=== PATIENT | female | born 1990 | race African-American/Black ===

== ENCOUNTER 2016-11-20 11:19 | Emergency (ER) | payer MEDICAID ==
--- NOTE | 2016-11-20 11:25 | ER Document Report ---
ED Medical Screen (RME) - General Stated Complaint: NAUSEA/VOMITING Mode of Arrival: Ambulatory Information source: Patient Notes: Patient presents complaining of nausea and vomiting that she trips to her present. Patient has not had any care thus far. Patient complains of dizziness. Last period was in October. Patient complains of generalized abdominal pain. I have greeted and performed a rapid initial assessment of this patient. A comprehensive ED assessment and evaluation of the patient, analysis of test results and completion of the medical decision making process will be conducted by additional ED providers. TRAVEL OUTSIDE OF THE [place] IN LAST 30 DAYS: No - Related Data Allergies/Adverse Reactions: No Known Allergies Allergy (Verified 11/20/16 11:22) Past Medical History - Past Medical History Cardiac Medical History: Reports: Hx Hypertension - preeclampsia Renal/ Medical History: Denies: Hx Ectopic , Hx Pelvic Inflammatory Disease - Immunizations Hx Diphtheria, Pertussis, Tetanus Vaccination: Yes Physical Exam - Abdominal Tenderness: Tender - Generalized abdomen
[2016-11-20] MEDS ORDERED: METOCLOPRAMIDE HCL 10 MG TABLET PO ONE (12:04)
[2016-11-20] MEDS ORDERED: ONDANSETRON 4 MG TAB.RAPDIS PO ONE (12:04)
[2016-11-20] MEDS ORDERED: DIPHENHYDRAMINE HCL 25 MG CAPSULE PO ONE (12:04)
--- NOTE | 2016-11-20 12:08 | ER Document Report ---
ED GI/ - General Chief Complaint: Vomiting Stated Complaint: NAUSEA/VOMITING Mode of Arrival: Ambulatory Notes: Patient says that she has had frequent, continuous vomiting for the past 10 days , since she took a test and learned she was . She's had daily nausea and vomiting and it continued this morning, as well. She is able to drink liquids, but can't keep any solid food down. She does feel hungry. Denies diarrhea. No fevers. Denies UTI symptoms. No cough or cold or chest congestion. Patient is for the sixth time, has 3 living children and 2 therapeutic abortions. LMP 10/02. Positive home test. Patient has had previous hyperemesis gravidarum during prior pregnancies. No abdominal surgeries. No routine medications. Has had hypertension with previous pregnancies. TRAVEL OUTSIDE OF THE [place] IN LAST 30 DAYS: No - Related Data Allergies/Adverse Reactions: No Known Allergies Allergy (Verified 11/20/16 11:22) Past Medical History - General Information source: Patient - Social History Smoking Status: Unknown if Ever Smoked Cigarette use (# per day): No Chew tobacco use (# tins/day): No Frequency of alcohol use: Occasional Drug Abuse: None Family History: Reviewed & Not Pertinent Patient has suicidal ideation: No Patient has homicidal ideation: No - Past Medical History Cardiac Medical History: Reports: Hx Hypertension - preeclampsia Surgical Hx: Negative - Immunizations Hx Diphtheria, Pertussis, Tetanus Vaccination: Yes Review of Systems - Review of Systems Notes: REVIEW OF SYSTEMS: CONSTITUTIONAL : Denies fever. EENT: Denies eye, ear, nose or mouth pain symptoms. Patient has pain in her throat, but thinks it secondary to vomiting so much. No known exposures to strep or other pharyngitis. CARDIOVASCULAR: Denies chest pain. RESPIRATORY: Denies cough, chest congestion, or shortness of breath. GASTROINTESTINAL: See history of present illness. GENITOURINARY: Denies difficulty or painful urinating, urinary frequency, blood in urine. MUSCULOSKELETAL: Denies back or neck pain. Denies joint pain or swelling. SKIN: Denies rash or skin lesions. NEUROLOGICAL: Denies LOC or altered mental status. Denies headache. Denies sensory loss or motor deficits. ALL OTHER SYSTEMS REVIEWED AND NEGATIVE. Physical Exam - Vital signs Vitals: Temp Pulse Resp BP Pulse Ox 97.8 F 96 18 122/71 97 11/20/16 11:24 11/20/16 11:24 11/20/16 11:24 11/20/16 11:24 11/20/16 11:24 Interpretation: Normal - Notes Notes: PHYSICAL EXAMINATION: GENERAL: Well-appearing, in no acute distress. HEAD: Atraumatic, normocephalic. ENT: oropharynx erythematous, but without exudates. Moist mucous membranes. Patent oral passage. NECK: Normal range of motion, supple. LUNGS: Breath sounds clear and equal bilaterally. HEART: Regular rate and rhythm without murmurs. ABDOMEN: Soft, nontender. No guarding or rebound. NEUROLOGICAL: Normal speech, normal gait. Normal sensory, motor, and reflex exams. Awake, alert, and oriented x3. Cranial nerves normal. SKIN: Warm, dry, no rashes. Course - Re-evaluation Re-evalutation: 11/20/16 14:18 Patient felt somewhat improved after medications for her nausea and vomiting. Lab results are all essentially normal. She is willing to try going home with medications and returning as needed for further assessment or treatment. She is being discharged with a prescription for Reglan and Zofran. - Vital Signs Vital signs: Temp Pulse Resp BP Pulse Ox 98.3 F 84 18 133/90 H 100 11/20/16 13:51 11/20/16 13:49 11/20/16 11:24 11/20/16 13:49 11/20/16 13:49 - Laboratory Result Diagrams: 11/20/16 12:35 11/20/16 12:35 Laboratory results interpreted by me: 11/20/16 11/20/16 12:05 12:35 Beta HCG, Quant 10093.00 H Urine Protein 30 H Urine Ketones 20 H Urine Blood SMALL H Urine Urobilinogen 4.0 H Urinalysis is probably normal. A culture was ordered. No antibiotic prescribed. Discharge - Discharge Clinical Impression: Vomiting during , Hyperemesis gravidarum Condition: Stable Disposition: HOME, SELF-CARE Additional Instructions: You are . care is best started as early in as possible. If you're unsure about continuing this , you should discuss this with your physician or with medical voucher clerk at [facility]. You should take only medications approved by your physician. Acetaminophen can safely be taken for minor pains. As a rule, medication for chronic conditions such as asthma or seizures can safely be continued. You should discuss with the physician every medicine you take. Any regular exercise program can be continued. Talk to your physician, however, before engaging in competitive or demanding sports. Alcohol, smoking, and "street drugs" are dangerous to your baby. Cocaine is especially dangerous. Don't use any illicit drugs! Vomiting Vomiting can be part of many illnesses. Most cases of vomiting are due to gastroenteritis, usually a viral infection in the intestinal tract. There is no specific treatment. The disease will end by itself. For now, the main danger to your child is dehydration. During the first few hours of the illness, give clear liquids, such as Pedialyte. Try to give small quantities frequently, such as a teaspoon of liquid every minute or about an ounce of fluids every five to ten minutes. Medications may be prescribed by the physician for special cases. After an hour or two of fluids without vomiting, add rice cereal, toast, applesauce, or bananas and other more solid foods to the clear liquids. Call the physician or go to the hospital if vomiting increases or blood appears in the bowel movement or vomitus; if your child fails to improve, or if signs of dehydration occur (no wet diapers for eight to twelve hours, tongue and mouth become dry, not acting as alert as usual). Hyperemesis Gravidarum Hyperemesis gravidarum is the medical term for severe vomiting during . We don't know exactly why it occurs, but it's a common problem. Dehydration can occur. This reduces blood flow to the placenta, decreasing the baby's nourishment. The baby will also become dehydrated. There can be harmful changes in blood sodium, potassium, or acid balance. Our goal is to correct, and prevent, dehydration. For severe cases, we give IV fluids. Antinausea medication will be prescribed. (Don't be concerned about " defects" -- the risk to you and your baby from the hyperemesis is the biggest problem. The antinausea medication is very safe at this stage of .) Call the doctor if you have vaginal bleeding, abdominal pain, severe lightheadedness or weakness, or other alarming symptoms. ANTINAUSEA MEDICATION: You have been given a medication to suppress nausea and vomiting. This type of medication can be given as a shot, pill, or suppository. It will usually last for many hours. Pills and shots usually last six to eight hours. For the typical illness, only one or two doses of the medication may be necessary. Mild lightheadedness may occur. This type of medicine can cause drowsiness. Do not drive or operate dangerous machinery while under its influence. Do not mix with alcohol. See your doctor at once if you have muscle spasms or tightness, or uncontrollable motions (particularly of the neck, mouth, or jaw). Persistent vomiting or severe lightheadedness should also be evaluated by the physician. Diphenhydramine The use of diphenhydramine (Benadryl) has been recommended to control allergic symptoms. The 25 mg strength is available over- the-counter, as well as the elixir. This antihistamine is used for many symptoms. It's useful for itching, watering eyes and nose, allergic swelling, hives, and insect stings. The medication can be repeated four times daily. Age Elixir (12.5 mg/tsp) 25 mg pill adult 1-2 tabs Antihistamines may cause drowsiness, especially with the first dose. Do not operate machinery or drive while under the effects of the medication. Do not combine the medication with alcohol, or with any other medication without talking to your doctor. REGLAN (METOCLOPRAMIDE): Reglan has been prescribed. This medicine affects the stomach and intestines. It can be used to treat nausea and vomiting, to prevent reflux of stomach acid up into the esophagus, or to increase the contractions of the stomach and intestines. It is often prescribed for esophagitis, and for paralysis of the stomach in diabetics. Reglan can cause either mild restlessness or drowsiness. You should contact the doctor at once if you become extremely restless, anxious, or cannot sleep, or if you develop uncontrollable motions of the lips, tongue, or jaw. Do not take alcohol with this medicine. Do not drive or operate machinery until you have been taking this medicine long enough to know how it affects you. Call the doctor if you develop abdominal pains, lightheadedness, black stool, or blood in the stool or vomitus. FOLLOW-UP CARE: If you have been referred to a physician for follow-up care, call the physician s office for an appointment as you were instructed or within the next two days. If you experience worsening or a significant change in your symptoms, notify the physician immediately or return to the Emergency Department at any time for re-evaluation. Prescriptions: Metoclopramide HCl [Reglan 10 mg Tablet] 1 - 2 tab PO Q4HP PRN #20 tablet PRN Reason: Ondansetron [Zofran Odt 4 mg Tablet] 1 - 2 tab PO Q4H PRN #20 tab.rapdis PRN Reason: For Nausea/Vomiting Forms: Return to Work Referrals: [facility] [Provider Group] - Follow up as needed
[2016-11-20 12:45] LABS: ABSOLUTE LYMPHOCYTES (AUTO) 1.4 10^3/uL (0.5-4.7); ABSOLUTE MONOCYTES (AUTO) 0.6 10^3/uL (0.1-1.4); ABSOLUTE NEUT (AUTO) 5.3 10^3/uL (1.7-8.2); BASOPHILS % (AUTO) 0.3 % (0-2); EOSINOPHILS % (AUTO) 0.1 % (0-6); HEMATOCRIT 40.6 % (36.0-47.0); HEMOGLOBIN 13.7 g/dL (12.0-15.5); HGB HCT DIFFERENCE 0.5; MEAN CORPUSCULAR HEMOGLOBIN 30.9 pg (27.0-33.4); MEAN CORPUSCULAR HGB CONC 33.8 g/dL (32.0-36.0); MEAN CORPUSCULAR VOLUME 91 fl (80-97); MONOCYTES % (AUTO) 8.1 % (3-13); RED BLOOD COUNT 4.45 10^6/uL (3.72-5.28); RED CELL DISTRIBUTION WIDTH 13.5 % (11.5-14.0); SEGMENTED NEUTROPHILS % (AUTO) 72.5 % (42-78); WHITE BLOOD COUNT 7.3 10^3/uL (4.0-10.5)
[2016-11-20 12:54] LABS: APPEARANCE,URINE CLOUDY; BILIRUBIN,URINE NEGATIVE (NEGATIVE); GLUCOSE, URINE NEGATIVE (NEGATIVE); KETONES,URINE 20 mg/dL (NEGATIVE); LEUKOCYTE ESTERASE,URINE NEGATIVE (NEGATIVE); NITRITE,URINE NEGATIVE (NEGATIVE); PROTEIN,URINE 30 mg/dL (NEGATIVE); URINE SPECIFIC GRAVITY 1.033
[2016-11-20 13:03] LABS: ALANINE AMINOTRANSFERASE 22 U/L (9-52); ALBUMIN 4.2 g/dL (3.5-5.0); ALKALINE PHOSPHATASE 49 U/L (38-126); ANION GAP 13 (5-19); ASPARTATE AMINO TRANSFERASE 16 U/L (14-36); BILIRUBIN,TOTAL 0.5 mg/dL (0.2-1.3); BLOOD UREA NITROGEN 7 mg/dL (7-20); CALCIUM 9.9 mg/dL (8.4-10.2); CARBON DIOXIDE 25 mmol/L (22-30); CHLORIDE 99 mmol/L (98-107); CREATININE RESULT 0.77 mg/dL (0.52-1.25); GLUCOSE 99 mg/dL (75-110); LIPASE 38.9 U/L (23-300); POTASSIUM 3.9 mmol/L (3.6-5.0); SODIUM 137.3 mmol/L (137-145); TOTAL PROTEIN 7.3 g/dL (6.3-8.2)
[2016-11-20 13:51] VITALS: BP 133/90
== END 2016-11-20 13:51 | disposition home or self-care (01) ==
LOC: ER 11:19
DX: O21.0 Mild hyperemesis gravidarum (principal); Z3A.01 Less than 8 weeks gestation of pregnancy
CPT/HCPCS: 99284; 36415; 87070; 87086; 87880; 84702; 83690; 85025; 80053; 81001; J3490 ×2; S0119

== ENCOUNTER 2017-07-06 11:32 | Emergency (ER) | payer SELFPAY ==
[2017-07-06 11:47] VITALS: BP 139/97
== END 2017-07-06 12:31 | disposition left against medical advice (07) ==
LOC: ER 11:32
DX: Z53.21 Procedure and treatment not carried out due to patient leaving prior to being seen by health care provider (principal)

== ENCOUNTER 2018-06-07 16:26 | Emergency (ER) | payer SELFPAY | END 2018-06-07 18:36 | disposition left against medical advice (07) | LOC: ER 16:26 | DX: Z53.21 Procedure and treatment not carried out due to patient leaving prior to being seen by health care provider (principal) ==

== ENCOUNTER 2018-07-12 11:13 | Emergency (ER) | payer SELFPAY ==
[2018-07-12] MEDS ORDERED: ONDANSETRON 4 MG TAB.RAPDIS PO ONE (11:41)
--- NOTE | 2018-07-12 11:43 | ER Document Report ---
ED Medical Screen (RME) - General Chief Complaint: Nausea/Vomiting Stated Complaint: HEADACHE Time Seen by Provider: 07/12/18 11:36 Notes: 28-year-old female complaining of a 2-day history of nausea and vomiting with. Also complains of suprapubic abdominal pain that is cramping in nature. Her menstrual cycle is approximately 5 days late. Denies any vaginal discharge. Has not taken home test. TRAVEL OUTSIDE OF THE [place] IN LAST 30 DAYS: No - Related Data Allergies/Adverse Reactions: No Known Allergies Allergy (Verified 06/07/18 16:27) Past Medical History - General Information source: Patient - Social History Cigarette use (# per day): No Chew tobacco use (# tins/day): No Frequency of alcohol use: Social Drug Abuse: None - Past Medical History Cardiac Medical History: Reports: Hx Hypertension - preeclampsia Renal/ Medical History: Denies: Hx Ectopic , Hx Peritoneal Dialysis, Hx Pelvic Inflammatory Disease - Immunizations Hx Diphtheria, Pertussis, Tetanus Vaccination: Yes Review of Systems - Review of Systems Gastrointestinal: See HPI Genitourinary: See HPI Female Genitourinary: See HPI Physical Exam - Vital signs Vitals: Temp Pulse Resp BP Pulse Ox 98.4 F 108 H 18 141/93 H 97 07/12/18 11:18 07/12/18 11:18 07/12/18 11:18 07/12/18 11:18 07/12/18 11:18 Interpretation: Tachycardic - Notes Notes: General: No acute distress Heart: Tachycardic, no Murmurs gallops or rubs Lungs: Clear to auscultation bilaterally, no tachypnea Abdomen: normal bowel sounds, mild suprapubic tenderness to palpation Course - Vital Signs Vital signs: Temp Pulse Resp BP Pulse Ox 98.4 F 108 H 18 141/93 H 97 07/12/18 11:18 07/12/18 11:18 07/12/18 11:18 07/12/18 11:18 07/12/18 11:18 Doctor's Discharge - Discharge Referrals: SRINATH MUNIZ MD [Primary Care Provider] - Follow up as needed
[2018-07-12 12:08] LABS: ABSOLUTE LYMPHOCYTES (AUTO) 1.4 10^3/uL (0.5-4.7); ABSOLUTE MONOCYTES (AUTO) 0.5 10^3/uL (0.1-1.4); ABSOLUTE NEUT (AUTO) 5.7 10^3/uL (1.7-8.2); BASOPHILS % (AUTO) 0.4 % (0-2); EOSINOPHILS % (AUTO) 0.6 % (0-6); HEMATOCRIT 39.9 % (36.0-47.0); HEMOGLOBIN 13.8 g/dL (12.0-15.5); LYMPHOCYTES % (AUTO) 17.8 % (13-45); MEAN CORPUSCULAR HEMOGLOBIN 32.3 pg (27.0-33.4); MEAN CORPUSCULAR HGB CONC 34.5 g/dL (32.0-36.0); MEAN CORPUSCULAR VOLUME 94 fl (80-97); MONOCYTES % (AUTO) 6.4 % (3-13); PLATELET COUNT 306 10^3/uL (150-450); RED BLOOD COUNT 4.26 10^6/uL (3.72-5.28); RED CELL DISTRIBUTION WIDTH 14.6 % (11.5-14.0); SEGMENTED NEUTROPHILS % (AUTO) 74.8 % (42-78); TOTAL CELLS COUNTED % (AUTO) 100 %; WHITE BLOOD COUNT 7.6 10^3/uL (4.0-10.5)
[2018-07-12 12:18] LABS: APPEARANCE,URINE CLOUDY; BILIRUBIN,URINE NEGATIVE (NEGATIVE); COLOR,URINE YELLOW; GLUCOSE, URINE NEGATIVE (NEGATIVE); KETONES,URINE NEGATIVE (NEGATIVE); LEUKOCYTE ESTERASE,URINE NEGATIVE (NEGATIVE); NITRITE,URINE NEGATIVE (NEGATIVE); PROTEIN,URINE 30 mg/dL (NEGATIVE); URINE SPECIFIC GRAVITY 1.029
--- NOTE | 2018-07-12 12:19 | ER Document Report ---
ED GI/ - General Mode of Arrival: Ambulatory Information source: Patient TRAVEL OUTSIDE OF THE [place] IN LAST 30 DAYS: No <LUL WARD - Last Filed: 07/12/18 13:33> <TRACIE TURNER - Last Filed: 07/12/18 15:03> - General Chief Complaint: Nausea/Vomiting Stated Complaint: HEADACHE Time Seen by Provider: 07/12/18 11:36 Notes: Patient is a 28 year old female that presents to the emergency department today with complaints of nausea x5 days. Patient states that her menstrual cycle is currently 5 days late and she is unsure if she is or not. Patient states she has developed some abdominal pain, all which has occurred after the vomiting began. Patient states she has been preeclamptic with previous pregnancies. (LUL WARD) - Related Data Allergies/Adverse Reactions: No Known Allergies Allergy (Verified 06/07/18 16:27) Past Medical History - General Information source: Patient - Social History Smoking Status: Current Every Day Smoker Cigarette use (# per day): No Chew tobacco use (# tins/day): No Frequency of alcohol use: Social Drug Abuse: None Family History: Reviewed & Not Pertinent Patient has suicidal ideation: No Patient has homicidal ideation: No - Past Medical History Cardiac Medical History: Reports: Hx Hypertension - preeclampsia Renal/ Medical History: Denies: Hx Ectopic , Hx Peritoneal Dialysis, Hx Pelvic Inflammatory Disease - Immunizations Hx Diphtheria, Pertussis, Tetanus Vaccination: Yes <LUL WARD - Last Filed: 07/12/18 13:33> Review of Systems - Review of Systems Gastrointestinal: See HPI, Abdominal pain, Nausea <LUL WARD - Last Filed: 07/12/18 13:33> Physical Exam <LUL WARD - Last Filed: 07/12/18 13:33> <TRACIE TURNER - Last Filed: 07/12/18 15:03> - Vital signs Vitals: Temp Pulse Resp BP Pulse Ox 98.4 F 108 H 18 141/93 H 97 07/12/18 11:18 07/12/18 11:18 07/12/18 11:18 07/12/18 11:18 07/12/18 11:18 - Notes Notes: Physical Exam: General: Alert, obese. HEENT: Normocephalic. Atraumatic. PERRL. Extraocular movements intact. Oropharynx clear. Neck: Supple. Non-tender. Respiratory: No respiratory distress. Clear and equal breath sounds bilaterally. Cardiovascular: Regular rate and rhythm. Abdominal: Obese. Suprapubic tenderness with palpation. No distension. Normal Bowel Sounds. Back: Non-tender. No deformity or step off. Extremities: Moves all four extremities. Upper extremities: Normal inspection. Normal ROM. Lower extremities: Normal inspection. No edema. Normal ROM. Neurological: Normal cognition. AAOx4. Normal speech. Psychological: Normal affect. Normal Mood. Skin: Warm. Dry. Normal color. (LUL WARD) Course - Laboratory Result Diagrams: 07/12/18 11:49 07/12/18 11:49 <LUL WARD - Last Filed: 07/12/18 13:33> - Laboratory Result Diagrams: 07/12/18 11:49 07/12/18 11:49 - Diagnostic Test Radiology reviewed: Reports reviewed - Ultrasound shows a 5-week 2-day gestational sac without pole. There is a subchorionic bleed. <TRACIE TURNER - Last Filed: 07/12/18 15:03> - Vital Signs Vital signs: Temp Pulse Resp BP Pulse Ox 98.4 F 108 H 18 141/93 H 97 07/12/18 11:18 07/12/18 11:18 07/12/18 11:18 07/12/18 11:18 07/12/18 11:18 - Laboratory Laboratory results interpreted by me: 07/12/18 07/12/18 07/12/18 11:49 11:49 11:49 RDW 14.6 H BUN 4 L Serum HCG, Qual POSITIVE H Beta HCG, Quant Urine Protein Urine Blood Urine Urobilinogen 07/12/18 07/12/18 11:49 11:49 RDW BUN Serum HCG, Qual Beta HCG, Quant 2979.40 H Urine Protein 30 H Urine Blood SMALL H Urine Urobilinogen 4.0 H Discharge <LUL WARD - Last Filed: 07/12/18 13:33> <TRACIE TURNER - Last Filed: 07/12/18 15:03> - Discharge Clinical Impression: , threatened, early Condition: Stable Disposition: HOME, SELF-CARE Additional Instructions: : You are . care is best started as early in as possible. If you're unsure about continuing this , you should discuss this with your physician or with grinding room supervisor at [facility]. You should take only medications approved by your physician. Acetaminophen can safely be taken for minor pains. As a rule, medication for chronic conditions such as asthma or seizures can safely be continued. You should discuss with the physician every medicine you take. Any regular exercise program can be continued. Talk to your physician, however, before engaging in competitive or demanding sports. Alcohol, smoking, and "street drugs" are dangerous to your baby. Cocaine is especially dangerous. Don't use any illicit drugs! Bleeding During Early : Your ultrasound shows a 5-week 2-day intrauterine with a subchorionic bleed. While we take this symptom very seriously, most women with your degree of bleeding will go on to have a perfectly normal baby. You have not had vaginal bleeding noted yet, but you most likely will have some in the next few days. It will probably be a dark brownish colored bleeding. You should rest in bed until the symptoms have resolved. Do not douche or have sex for at least a week, or until OK'd by the doctor. Don't use tampons. Call the doctor or return for re-examination if there is an increase in bleeding or cramping, extreme weakness, fainting, new abdominal pain, fever, or passage of tissue. Drink plenty of fluids and rest until the cramping is gone. Follow-up with the health department or with [facility] to start your care. RETURN TO THE EMERGENCY ROOM IF ANY NEW OR WORSENING SYMPTOMS. Referrals: SRINATH MUNIZ MD [ACTIVE STAFF] - Follow up as needed Scribe Attestation: 07/12/18 13:32 I personally performed the services described in the documentation, reviewed and edited the documentation which was dictated to the scribe in my presence, and it accurately records my words and actions. (TRACIE TURNER) Scribe Documentation - Scribe Written by Scribe:: Karey Pace, 07/12/2018 1415 acting as scribe for :: Crystal <LUL WARD - Last Filed: 07/12/18 13:33>
[2018-07-12 12:26] LABS: ALANINE AMINOTRANSFERASE 24 U/L (9-52); ALBUMIN 4.3 g/dL (3.5-5.0); ALKALINE PHOSPHATASE 47 U/L (38-126); ANION GAP 11 (5-19); ASPARTATE AMINO TRANSFERASE 16 U/L (14-36); BILIRUBIN,DIRECT 0.1 mg/dL (0.0-0.4); BILIRUBIN,TOTAL 0.6 mg/dL (0.2-1.3); BLOOD UREA NITROGEN 4 mg/dL (7-20); CALCIUM 9.7 mg/dL (8.4-10.2); CARBON DIOXIDE 25 mmol/L (22-30); CHLORIDE 105 mmol/L (98-107); GLUCOSE 89 mg/dL (75-110); LIPASE 50.2 U/L (23-300); SODIUM 141.2 mmol/L (137-145); TOTAL PROTEIN 7.4 g/dL (6.3-8.2)
--- NOTE | 2018-07-12 14:28 | RADIOLOGY REPORT (SQ) ---
EXAM DESCRIPTION: U/S OB TRANSVAGINAL W/O DOP COMPLETED DATE/TIME: 07/12/2018 2:07 pm REASON FOR STUDY: Suprapubic abdominal cramping COMPARISON: None. TECHNIQUE: Transvaginal static and realtime grayscale images acquired of the pelvis. Additional dariana cted spectral and color Doppler images recorded. All images stored on PACs. [facility],[id number] CLINICAL DATES: 5 weeks 0 days. LIMITATIONS: None. FINDINGS: FETUS: No pole is identifiable. ULTRASOUND EGA: 5 weeks 2 days. ULTRASOUND OMAR: 03/12/2019 EFW: Not applicable less than 20 weeks. CRL: No pole. FHR: No heart activity. PLACENTA: Not yet developed due to early gestation. SUBCHORIONIC BLEED: Yes. SIZE OF BLEED: 1.7 x 0.8 cm. UTERUS: No masses. No anomalies. CERVICAL LENGTH: 3.3 cm. Closed. RIGHT ADNEXA: Ovary not identified due to poor acoustical window. No adnexal free fluid. No adnexal masses. LEFT ADNEXA: Ovary not identified due to poor acoustical window. No adnexal free fluid. No adnexal masses. FREE FLUID: None. OTHER: No other significant finding. IMPRESSION: Gestational sac corresponding to 5 weeks 2 days. No pole or heart activity. Ther e is a small subchorionic bleed. Trimester of : First - 0 to 13 weeks. TECHNICAL DOCUMENTATION: JOB ID: [id number] [employer]- All Rights Reserved rev Reading location - IP/workstation name: [email or web address]
[2018-07-12 15:32] VITALS: BP 131/92
== END 2018-07-12 15:32 | disposition home or self-care (01) ==
LOC: ER 11:13
DX: O20.0 Threatened abortion (principal); O16.1 Unspecified maternal hypertension, first trimester; O26.891 Other specified pregnancy related conditions, first trimester; R11.0 Nausea; O99.331 Smoking (tobacco) complicating pregnancy, first trimester; Z3A.01 Less than 8 weeks gestation of pregnancy
CPT/HCPCS: 99284; 36415; 84702; 83690; 84703; 85025; 80053; 81001; 76817; S0119

== ENCOUNTER 2018-11-06 08:47 | Outpatient (CLI) | payer SELFPAY ==
[2018-11-06 09:23] LABS: APPEARANCE,URINE SLIGHTLY-CLOUDY; BILIRUBIN,URINE SMALL (NEGATIVE); GLUCOSE, URINE NEGATIVE (NEGATIVE); KETONES,URINE 20 mg/dL (NEGATIVE); LEUKOCYTE ESTERASE,URINE NEGATIVE (NEGATIVE); NITRITE,URINE NEGATIVE (NEGATIVE); PROTEIN,URINE NEGATIVE (NEGATIVE); URINE SPECIFIC GRAVITY 1.025
[2018-11-06 09:24] LABS: COLOR,URINE DARK YELLOW
[2018-11-06 09:36] LABS: URINE AMPHETAMINES SCREEN NEGATIVE; URINE BARBITURATES SCREEN NEGATIVE; URINE BENZODIAZEPINES SCREEN NEGATIVE; URINE METHADONE SCREEN NEGATIVE; URINE PHENCYCLIDINE SCREEN NEGATIVE
[2018-11-06 09:49] LABS: URINE COCAINE SCREEN UNCONFIRMED POSITIVE
[2018-11-06 09:50] LABS: URINE MARIJUANA (THC) SCREEN UNCONFIRMED POSITIVE
[2018-11-06 10:42] LABS: BACTERIA (WET MOUNT) 3+ BACTERIA SEEN; EPITHELIALS (WET MOUNT) 4+ EPITHELIALS SEEN; RBCS (WET MOUNT) NO RBCS SEEN; T.VAGINALIS (WET MOUNT) NO TRICHOMONAS SEEN; WBCS (WET MOUNT) 2+ WBCS SEEN; YEAST (WET MOUNT) NO YEAST SEEN
[2018-11-06 10:54] LABS: ABSOLUTE EOSINOPHILS # (AUTO) 0.1 10^3/uL (0.0-0.6); ABSOLUTE LYMPHOCYTES (AUTO) 0.5 10^3/uL (0.5-4.7); ABSOLUTE MONOCYTES (AUTO) 0.5 10^3/uL (0.1-1.4); ABSOLUTE NEUT (AUTO) 7.1 10^3/uL (1.7-8.2); BASOPHILS % (AUTO) 0.3 % (0-2); EOSINOPHILS % (AUTO) 0.6 % (0-6); HEMATOCRIT 33.7 % (36.0-47.0); HEMOGLOBIN 11.5 g/dL (12.0-15.5); MEAN CORPUSCULAR HEMOGLOBIN 31.3 pg (27.0-33.4); MEAN CORPUSCULAR HGB CONC 34.1 g/dL (32.0-36.0); MEAN CORPUSCULAR VOLUME 92 fl (80-97); MONOCYTES % (AUTO) 6.3 % (3-13); PLATELET COUNT 221 10^3/uL (150-450); RED BLOOD COUNT 3.67 10^6/uL (3.72-5.28); RED CELL DISTRIBUTION WIDTH 12.9 % (11.5-14.0); SEGMENTED NEUTROPHILS % (AUTO) 86.8 % (42-78); TOTAL CELLS COUNTED % (AUTO) 100 %; WHITE BLOOD COUNT 8.2 10^3/uL (4.0-10.5)
[2018-11-06 11:42] LABS: RUBELLA INTERPRETATION POSITIVE
--- NOTE | 2018-11-06 11:55 | RADIOLOGY REPORT (SQ) ---
EXAM DESCRIPTION: U/S OB LIMITED COMPLETED DATE/TIME: 11/06/2018 11:36 am REASON FOR STUDY: vaginal spotting, FWB, need placenta eval too COMPARISON: None. TECHNIQUE: Limited transvaginal grayscale ultrasound for evaluation of specific requested obstetrica l parameters. LIMITATIONS: None. FINDINGS: CERVICAL LENGTH: 3.2 cm. Closed. TUSHAR: 4.1 cm. FHR: 157 beats per minute. PRESENTATION: Breech. PLACENTA: Not assessed ANATOMY: Not assessed OTHER: Estimated weight 380 g IMPRESSION: LIMITED OBSTETRICAL ULTRASOUND WITH MEASURED PARAMETERS DELINEATED ABOVE. Trimester of : Second trimester - 13 weeks 1 day to 27 weeks 6 days. TECHNICAL DOCUMENTATION: JOB ID: [id number] [employer]- All Rights Reserved Reading location - IP/workstation name: [email or web address]
[2018-11-06 12:06] LABS: CHLAM PCR NOT DETECTED (NOT DETECT); GON PCR NOT DETECTED (NOT DETECT)
[2018-11-07 11:40] LABS: HEPATITIS C VIRUS AB <0.1 s/co ratio (0.0-0.9)
[2018-11-08 07:06] LABS: HEPATITS B SURFACE ANTIGEN Negative (Negative)
[2018-11-11 06:17] LABS: COCAINE METABOLITE CONFIRM UR Positive (.)
== END 2018-11-06 11:48 | disposition home or self-care (01) ==
LOC: LC 08:47
PROVIDERS: ATTEND Student in an Organized Health Care Education/Training Program
DX: O26.852 Spotting complicating pregnancy, second trimester (principal)
CPT/HCPCS: 86900; 86901; 36415; 87086; 87210; 86850; 83655; 84443; 85025; 86762; 86592; 81001; 87340; 86701; 80307; 80353; 87491; 87591; 80361; 86803; 86804; 76815; G0480 ×3; 80349

== ENCOUNTER → 2018-12-13 | Outpatient (CLI) | payer SELFPAY ==
--- NOTE | 2018-12-13 15:33 | RADIOLOGY REPORT (SQ) ---
EXAM DESCRIPTION: U/S OB 14+ TRNABD 1GES W/O DOP COMPLETED DATE/TIME: 12/13/2018 1:54 pm REASON FOR STUDY: Z34.82 ENCOUNTER FOR SUPRVSN OF NORMAL , SECOND TRIMESTER Z34.82 ENCOUNT ER FOR SUPRVSN OF NORMAL , SECOND TRI COMPARISON: 11/06/2018 TECHNIQUE: Static and Dynamic grayscale imaging performed of gravid uterus using transabdominal appr oach. Additional selected color Doppler and spectral images recorded. All stored on PACS. LIMITATIONS: None. FINDINGS: FETUSES SEEN:1 EGA: 26 weeks 1 day Calculated using BPD,FL,HC,AC documented on images. No significant discrepancy w ith clinical dates. OMAR: 03/20/2019 EFW: 926+/- 137 grams PERCENTILE: 41st percentile LVP: 5.9 cm. PLACENTA: Posterior GRADE: I PRESENTATION: Cephalic. ANATOMY: HEART RATE: 143 beats per minute. FOUR CHAMBER HEART: Visualized. THREE VESSEL CORD: Yes. CORD INSERTION: Visualized. KIDNEYS AND BLADDER: Visualized. Appear normal. STOMACH: Visualized. Appears normal. SPINE: Normal as visualized. BRAIN AND LATERAL VENTRICLES: Visualized. Appear normal. OTHER: No other significant finding. MATERNAL ADNEXA: Maternal ovaries not visualized. CERVICAL LENGTH: 2.8 cm. Closed. OTHER: No other significant finding. IMPRESSION: LIVING INTRAUTERINE . ESTIMATED GESTATIONAL AGE 26 weeks 1 day NO VISUALIZED ANOMALIES. Trimester of : Second trimester - 13 weeks 1 day to 27 weeks 6 days. TECHNICAL DOCUMENTATION: JOB ID: [id number] [email or web address]- All Rights Reserved Reading location - IP/workstation name: [email or web address]
== END ==
LOC: EDSTATUS 12-05 13:00 → RAD 12:44
PROVIDERS: ATTEND Midwife
DX: Z34.82 Encounter for supervision of other normal pregnancy, second trimester (principal)
CPT/HCPCS: 76805

== ENCOUNTER 2019-03-21 16:08 | Inpatient (IN) | payer SELFPAY ==
[2019-03-21 17:53] LABS: ABSOLUTE LYMPHOCYTES (AUTO) 1.5 10^3/uL (0.5-4.7); ABSOLUTE MONOCYTES (AUTO) 0.6 10^3/uL (0.1-1.4); ABSOLUTE NEUT (AUTO) 6.8 10^3/uL (1.7-8.2); BASOPHILS % (AUTO) 0.3 % (0-2); EOSINOPHILS % (AUTO) 0.2 % (0-6); HEMATOCRIT 33.8 % (36.0-47.0); HEMOGLOBIN 11.2 g/dL (12.0-15.5); LYMPHOCYTES % (AUTO) 16.4 % (13-45); MEAN CORPUSCULAR HEMOGLOBIN 30.5 pg (27.0-33.4); MEAN CORPUSCULAR HGB CONC 33.1 g/dL (32.0-36.0); MEAN CORPUSCULAR VOLUME 92 fl (80-97); PLATELET COUNT 184 10^3/uL (150-450); RED BLOOD COUNT 3.67 10^6/uL (3.72-5.28); RED CELL DISTRIBUTION WIDTH 14.3 % (11.5-14.0); SEGMENTED NEUTROPHILS % (AUTO) 76.1 % (42-78); TOTAL CELLS COUNTED % (AUTO) 100 %
[2019-03-21 18:11] LABS: UR PRO/CREAT RATIO RESULT 0.2 mg/mg (0.0-0.2); URINE CREATININE 110.3 mg/dL (16-327); URINE PROTEIN 20.2 mg/dL (<12)
[2019-03-21 18:33] LABS: ALANINE AMINOTRANSFERASE 17 U/L (9-52); ALBUMIN 3.3 g/dL (3.5-5.0); ALKALINE PHOSPHATASE 179 U/L (38-126); ANION GAP 9 (5-19); ASPARTATE AMINO TRANSFERASE 19 U/L (14-36); BILIRUBIN,DIRECT 0.2 mg/dL (0.0-0.4); BILIRUBIN,TOTAL 0.3 mg/dL (0.2-1.3); BLOOD UREA NITROGEN 9 mg/dL (7-20); CALCIUM 9.6 mg/dL (8.4-10.2); CARBON DIOXIDE 25 mmol/L (22-30); CHLORIDE 104 mmol/L (98-107); GLUCOSE 74 mg/dL (75-110); POTASSIUM 4.8 mmol/L (3.6-5.0); SODIUM 137.7 mmol/L (137-145); TOTAL PROTEIN 6.1 g/dL (6.3-8.2); URIC ACID 5.6 mg/dL (2.5-6.2)
[2019-03-21] MEDS ORDERED: ACETAMINOPHEN 325 MG TABLET ONE (19:03)
[2019-03-21] MEDS ORDERED: ACETAMINOPHEN 325 MG TABLET PO ONE (19:08)
[2019-03-21 20:01] LABS: APPEARANCE,URINE CLEAR; BILIRUBIN,URINE NEGATIVE (NEGATIVE); COLOR,URINE YELLOW; GLUCOSE, URINE NEGATIVE (NEGATIVE); KETONES,URINE NEGATIVE (NEGATIVE); LEUKOCYTE ESTERASE,URINE NEGATIVE (NEGATIVE); NITRITE,URINE NEGATIVE (NEGATIVE); PROTEIN,URINE NEGATIVE (NEGATIVE); URINE SPECIFIC GRAVITY 1.011
[2019-03-21 20:09] LABS: URINE AMPHETAMINES SCREEN NEGATIVE; URINE BARBITURATES SCREEN NEGATIVE; URINE BENZODIAZEPINES SCREEN NEGATIVE; URINE COCAINE SCREEN NEGATIVE; URINE METHADONE SCREEN NEGATIVE; URINE PHENCYCLIDINE SCREEN NEGATIVE
[2019-03-21 20:11] LABS: URINE MARIJUANA (THC) SCREEN UNCONFIRMED POSITIVE
--- NOTE | 2019-03-21 20:12 | Admission Physical ---
Datetime Report Generated by CPN: 03/21/2019 20:12 CURRENT ADMISSION Chief Complaint: Other Indication for Induction: Chronic Primary/Essential HTN Admit Impression : Term, Intrauterine Admit Plan: Initiate Labor Induction Protocol ALLERGIES Medication Allergies: No Medication Allergies: No Known Allergies (03/21/2019) Latex: Unknown Food Allergies: NONE Environmental Allergies: NONE OBSTETRICAL HISTORY EDC: 03/15/2019 00:00 : 6 Para: 3 Term: 0 : 3 SAB: 0 IAB: 2 Ectopic: 0 Livin Cesareans: 0 VBACs: 0 Multiple Births: 0 Gestational Diabetes: No Rh Sensitization: No Incompetent Cervix: No ANETTE: No Infertility: No ART Treatment: No Uterine Anomaly: No IUGR: No Hx Previous C/S: No Macrosomia: No Hx Loss/Stillborn: No PIH: Yes Hx : No Placenta Previa/Abruption: No Depression/PP Depression: No PTL/PROM: No Post Hemorrhage: No Current Procedures: Ultrasound Obstetrical History Comments: G1- IOL APPROX 34-35 WEEKS- PRE-E G2- IOL APPROX 34-35 WEEKS- PRE-E G3- EAB G4- IOL APPROX 34-35 WEEKS- PRE-E G5- EAB G6- CURRENT, NO CARE SEE RECORDS Alcohol: No Marijuana : Yes Cocaine: Yes Last Used: emily Other Illicit Drugs: No Cigarettes: Current Some Day Smoker. 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 Heart Disease: No Hosp/Surgery: Yes Autoimmune Disorder: No Anesthetic Complications: No Kidney Disease: No Abnormal Pap Smear: No Neuro/Epilepsy: No Psychiatric Disorders: No Other Medical Diseases: No Hepatitis/Liver Disease: No Significant Family History: No Varicosities/Phlebitis: No Trauma/Violence : No Thyroid Dysfunction: No Medical History Comments: PRE-E X 3; PRE-E X3 CHILDBIRTH INFECTIOUS HISTORY Gonorrhea: No Genital Herpes: No Chlamydia: No Tuberculosis: No Syphilis: No Hepatitis: No HIV/AIDS Exposure: No Rash or Viral Illness: No HPV: No PHYSICAL EXAM General: Normal HEENT: Normal Neurologic: Normal Thyroid: Normal Heart: Normal Lungs: Normal Breast: Deferred Back: Normal Abdomen: Normal Genitourinary Exam: Normal Extremities: Normal DTRs: Normal Pelvic Type: Adequate FETUS A EGA: 40.6 PLANS FOR LABOR AND DELIVERY Labor and Delivery: None Feeding Preference: Formula Benefit of Breast Feed Discussed: Yes Circumcision: N/A INFORMED CONSENT Signature: with User ID: [email or web address]
--- NOTE | 2019-03-21 20:15 | RADIOLOGY REPORT (SQ) ---
EXAM DESCRIPTION: US LIMITED COMPLETED DATE/TME: 03/21/2019 19:08 CLINICAL HISTORY: 28 years, Female, no care. COMPARISON: Prior study from 12/13/2018 TECHNIQUE: 2-D grayscale images of the pelvis were obtained. Doppler was utilized. LIMITATIONS: None. FINDINGS: A single intrauterine gestation is identified in the vertex position. Measurements are as follows: Amniotic fluid index is 3.2 cm heart rate is 144 bpm Placenta is posterior/fundal, grade 3 Femoral length is 7.51 cm Abdominal circumference is 34.91 cm Head circumference is 31.81 cm Biparietal diameter is 8.62 cm Estimated weight is 3324 g (7 pounds and 5 ounces) Ultrasound age is 37 weeks and 0 days IMPRESSION: Single viable intrauterine , with measurements as above described. However, amniotic fluid index is diminished, measuring 3.2 cm. copyright 2010 [employer]- All Rights Reserved
[2019-03-21] MEDS ORDERED: DINOPROSTONE 10 MG VAGINAL INSERT.SR PV PRN (20:22)
[2019-03-21] MEDS ORDERED: RINGERS SOLUTION,LACTATED 1,000 ML IV PRN (20:24)
[2019-03-21] MEDS ORDERED: DINOPROSTONE 10 MG VAGINAL INSERT.SR ONE (20:44)
[2019-03-21 23:34] LABS: CHLAM PCR NOT DETECTED (NOT DETECT)
[2019-03-22] MEDS ORDERED: PENICILLIN G-K 5 MILLION UNIT VIAL ONE (01:11)
[2019-03-22] MEDS ORDERED: MISOPROSTOL 0.2 MG TABLET ONE (01:12)
[2019-03-22] MEDS ORDERED: OXYTOCIN/NORMAL SALINE 20 UNIT/1,000 ML RTUINJ ONE (01:12)
[2019-03-22] MEDS ORDERED: LIDOCAINE 1% INJ-PF (10 MG/ML) 30 ML SDV ONE (01:12)
[2019-03-22] MEDS ORDERED: OXYTOCIN 10 UNIT/ML VIAL ONE (01:12)
[2019-03-22] MEDS ORDERED: MEASLES,MUMPS&RUBELLA VACC/PF 0.5 ML VIAL SUBCUT PRN (05:13)
[2019-03-22] MEDS ORDERED: ACETAMINOPHEN 650 MG SUPP.RECT PR PRN (05:13)
[2019-03-22] MEDS ORDERED: DIPH/PERTUSS(ACELL)/TETANUS VAC/PF 0.5 ML SYR (>=10YO) IM PRN (05:13)
[2019-03-22] MEDS ORDERED: BENZOCAINE/MENTHOL AEROSOL SPRAY 56 ML TOP PRN (05:13)
[2019-03-22] MEDS ORDERED: NA PHOS,M-B/NA PHOS,DI-BA (ADULT) 133 ML ENEMA PR PRN (05:13)
[2019-03-22] MEDS ORDERED: PROMETHAZINE HCL 25 MG TABLET PO PRN (05:13)
[2019-03-22] MEDS ORDERED: DIBUCAINE 1% OINTMENT 56 GM TP PRN (05:13)
[2019-03-22] MEDS ORDERED: OXYTOCIN/NORMAL SALINE 20 UNIT/1,000 ML RTUINJ IV PRN (05:13)
[2019-03-22] MEDS ORDERED: DIPHENHYDRAMINE HCL 25 MG CAPSULE PO PRN (05:13)
[2019-03-22] MEDS ORDERED: PROMETHAZINE HCL 25 MG SUPP.RECT PR PRN (05:13)
[2019-03-22] MEDS ORDERED: PROMETHAZINE HCL INJ 25 MG/1 ML VIAL IV PRN (05:13)
[2019-03-22] MEDS ORDERED: PSEUDOEPHEDRINE HCL 30 MG TABLET PO PRN (05:13)
[2019-03-22] MEDS ORDERED: ZOLPIDEM TARTRATE 5 MG TABLET PO PRN (05:13)
[2019-03-22] MEDS ORDERED: MAGNESIUM HYDROXIDE SUSP 30 ML UDCUP PO PRN (05:13)
[2019-03-22] MEDS ORDERED: GLYCERIN/WITCH HAZEL LEAF 1 EACH MED..WIPE TP PRN (05:13)
[2019-03-22] MEDS ORDERED: IBUPROFEN 800 MG TABLET ONE (05:23)
[2019-03-22] MEDS ORDERED: ACETAMINOPHEN WITH CODEINE #3 TABLET ONE (05:23)
[2019-03-22] MEDS: ACETAMINOPHEN WITH CODEINE #3 TABLET PO PRN ×2 (05:25→11:59)
[2019-03-22] MEDS: IBUPROFEN 800 MG TABLET PO SCH ×3 (05:25→22:02)
[2019-03-22] MEDS ORDERED: LABETALOL HCL 200 MG TABLET PO SCH (06:00)
[2019-03-22] MEDS ORDERED: LABETALOL HCL 200 MG TABLET ONE ×2 (06:06→09:56)
--- NOTE | 2019-03-22 06:13 | Delivery Summary ---
Del Sum A-C Datetime Report Generated by CPN: 03/22/2019 06:13 DELIVERY PERSONNEL DELIVERY PERSONNEL: [id number] Delivery Doctor:: Lincoln Quinones MD Labor and Delivery Nurse:: Carole Damon RNproduction control expert Nurse:: Gabrielle Lubin RN Nursery Nurse:: Annie Pierce RN MATERNAL INFORMATION Delivery Anesthesia: None Medications After Delivery: Pitocin Bolus-Please Comment; Cytotec 1000mcg Per Rectum/Vagina Delivery QBL: 75 Maternal Complications: None LABOR SUMMARY EDC: 03/15/2019 00:00 No. Babies in Womb: 1 Labor Anesthesia: None LABOR INFORMATION Reason for Induction: Gestational Hypertension Onset of Labor: 03/22/2019 01:02 Complete Dilatation: 03/22/2019 04:56 Cervical Ripening Agents: Cervidil Oxytocin: N/A Group B Beta Strep: unknown Steroids Given: None Reason Steroids Not Administered: Not Applicable MEMBRANES Membranes Rupture Method: Artificial Rupture of Membranes: 03/22/2019 04:55 Length of Rupture (hr): 0.12 Amniotic Fluid Color: Heavy Meconium Amniotic Fluid Amount: Small Amniotic Fluid Odor: Normal STAGES OF LABOR Stage 1 hr: 3 Stage 1 min: 54 Stage 2 hr: 0 Stage 2 min: 6 Stage 3 hr: 0 Stage 3 min: 5 Total Time in Labor hr: 4 Total Time in Labor min: 5 VAGINAL DELIVERY Episiotomy: None Laceration #1: None Laceration Extension #1: N/A Laceration Repair: Not Applicable Sponge Count Correct: Yes Sharps Count Correct: Yes CSECTION DELIVERY Primary Indication: N/A Secondary Indication: N/A CSection Incidence: N/A Labor: N/A Elective: N/A CSection Incision: N/A BABY A INFORMATION Infant Delivery Date/Time: 03/22/2019 05:02 Method of Delivery: Vaginal Born in Route : No : N/A Forceps: N/A Vacuum Extraction: N/A Shoulder Dystocia : No PRESENTATION/POSITION BABY A Presentation: Cephalic Cephalic Presentation: Vertex Vertex Position: Right Occipital Anterior Breech Presentation: N/A PLACENTA INFORMATION BABY A Placenta Delivery Time : 03/22/2019 05:07 Placenta Method of Delivery: Spontaneous Placenta Status: Delivered SCORES BABY A Heart Rate 1 min: >100 bpm Resp Effort 1 min: Good Cry Reflex Irritability 1 min: Cough or Sneeze or Pulls Away Muscle Tone 1 min: Active Motion Color 1 min: Blue/Pale Resuscitation Effort 1 min: Tactile Stimulation SCORE 1 MIN: 8 Heart Rate 5 min: >100 bpm Resp Effort 5 min: Good Cry Reflex Irritability 5 min: Cough or Sneeze or Pulls Away Muscle Tone 5 min: Active Motion Color 5 min: Body [place], Extremities Blue Resuscitation Effort 5 min: Tactile Stimulation SCORE 5 MIN: 9 INFANT INFORMATION BABY A Gestational Age at Delivery: 41.0 Gestational Status: Late Term- 41- 41.6 Weeks Outcome : Liveborn Infant Condition : Stable Infant Sex: Female IDENTIFICATION BABY A Infant Verification Date/Time: 03/22/2019 05:13 ID Band Number: [id number] Mother's Name Verified: Yes RN Verifying Infant: Rudy GABBY Additional Verifying Personnel: Ana MariaGABBY WEIGHT/LENGTH BABY A Birthweight (gm): 3203 Weight (lb): 7 Infant Weight (oz): 1 Length (in): 20.00 Infant Length (cm): 50.80 CORD INFORMATION BABY A No. Cord Vessels: 3 Nuchal Cord : N/A Cord Blood Taken: Yes-For Eval (Mom's Blood Type - or O+) Infant Suction: Mouth; Nose ASSESSMENT BABY A Infant Complications: Meconium Physical Findings at Delivery: Within Normal Limits Skin to Skin: Yes Transferred To: Remains with Mother SIGNATURES Signature: with User ID: [email or web address]
[2019-03-22] MEDS ORDERED: DOCUSATE SODIUM 100 MG CAPSULE ONE (10:54)
[2019-03-22] MEDS ORDERED: PRENATAL VITAMIN W DHA CAPSULE PO ONE (10:54)
[2019-03-22] MEDS ORDERED: SENNOSIDES/DOCUSATE 8.6-50 MG 1 EACH TABLET ONE (10:54)
[2019-03-22] MEDS ORDERED: FAMOTIDINE 20 MG TABLET ONE (10:54)
[2019-03-22] MEDS ORDERED: FERROUS SULFATE 325 MG TABLET PO ONE (10:55)
[2019-03-22] MEDS: PRENATAL VITAMIN W DHA CAPSULE PO SCH (10:56)
[2019-03-22] MEDS: SENNOSIDES/DOCUSATE 8.6-50 MG 1 EACH TABLET PO SCH (10:56)
[2019-03-22] MEDS: FAMOTIDINE 20 MG TABLET PO SCH ×2 (10:56→22:02)
[2019-03-22] MEDS: DOCUSATE SODIUM 100 MG CAPSULE PO SCH ×2 (10:56→17:04)
[2019-03-22] MEDS: FERROUS SULFATE 325 MG TABLET PO SCH ×2 (10:56→17:04)
[2019-03-22] MEDS: LABETALOL HCL 200 MG TABLET PO SCH (18:28)
[2019-03-23] MEDS: IBUPROFEN 800 MG TABLET PO SCH ×3 (05:43→21:53)
[2019-03-23] MEDS: LABETALOL HCL 200 MG TABLET PO SCH ×2 (05:43→17:20)
[2019-03-23 07:14] LABS: HEMATOCRIT 30.1 % (36.0-47.0); HEMOGLOBIN 10.1 g/dL (12.0-15.5); MEAN CORPUSCULAR HGB CONC 33.6 g/dL (32.0-36.0); MEAN CORPUSCULAR VOLUME 92 fl (80-97); PLATELET COUNT 165 10^3/uL (150-450); RED BLOOD COUNT 3.27 10^6/uL (3.72-5.28); RED CELL DISTRIBUTION WIDTH 14.5 % (11.5-14.0)
--- NOTE | 2019-03-23 10:38 | PDOC PROGRESS REPORT ---
Subjective-OB Progress Note for:: 03/23/19 - PP Day #1, doing well, no complaints, bottlefeeding, O+, rubella Immune, no PNC during , +THC on admission Physical Exam (OB) Vital Signs: Temp Pulse Resp BP Pulse Ox 97.5 F 72 18 126/69 H 100 03/22/19 19:41 03/22/19 19:41 03/22/19 19:41 03/22/19 19:41 03/22/19 19:41 Intake & Output 03/22/19 03/23/19 03/24/19 06:59 06:59 06:59 Weight 121.7 kg - General General Appearance: Appears well, Alert In distress: None - PIH/Pre-Eclampsia DTR's: 1 + Clonus: Negative Headache: Absent Epigastric Pain: No Visual Changes: No - Lochia Lochia Amount: Scant < 10 ml Lochia Color: Rubra/Red - Abdomen Description: Soft, Round Hernia Present: No Fundal Description: Firm, Midline Fundal Height: u/u - u/2 - Respiratory Respiratory Status: No respiratory distress - Abdominal Distension: No distension Tenderness: Nontender - Genitourinary Genitourinary Note: voiding - Extremities Upper extremity: Normal inspection Lower extremities: Normal inspection - Neurological Cognition: Normal Orientation: AAOx4 - Psychological Associated symptoms: Normal affect, Normal mood - Skin Skin Temperature: Warm Skin Moisture: Dry Objective-Diagnostic Laboratory: 03/23/19 07:04 03/21/19 17:42 03/23/19 07:04 WBC 10.0 RBC 3.27 L Hgb 10.1 L Hct 30.1 L MCV 92 MCH 31.0 MCHC 33.6 RDW 14.5 H Plt Count 165 Assessment and Plan(PN) - Assessment and Plan (1) Marijuana abuse Is this a current diagnosis for this admission?: Yes (2) Limited care in third trimester Is this a current diagnosis for this admission?: Yes (3) Anemia Qualifiers: Anemia type: iron deficiency Is this a current diagnosis for this admission?: Yes (4) Chronic hypertension Is this a current diagnosis for this admission?: Yes (5) Delivery normal Is this a current diagnosis for this admission?: Yes - Time Spent with Patient Time with patient: Less than 15 minutes Medications reviewed and adjusted accordingly: Yes - Disposition Anticipated Discharge: Home Within: within 24 hours
[2019-03-23] MEDS: SENNOSIDES/DOCUSATE 8.6-50 MG 1 EACH TABLET PO SCH (11:06)
[2019-03-23] MEDS: FERROUS SULFATE 325 MG TABLET PO SCH ×2 (11:06→17:20)
[2019-03-23] MEDS: DOCUSATE SODIUM 100 MG CAPSULE PO SCH ×2 (11:06→17:20)
[2019-03-23] MEDS: PRENATAL VITAMIN W DHA CAPSULE PO SCH (11:06)
[2019-03-23] MEDS: FAMOTIDINE 20 MG TABLET PO SCH ×2 (11:06→21:53)
[2019-03-24] MEDS: IBUPROFEN 800 MG TABLET PO SCH ×2 (05:31→13:35)
[2019-03-24] MEDS: LABETALOL HCL 200 MG TABLET PO SCH (05:31)
[2019-03-24] MEDS: PRENATAL VITAMIN W DHA CAPSULE PO SCH (10:08)
[2019-03-24] MEDS: SENNOSIDES/DOCUSATE 8.6-50 MG 1 EACH TABLET PO SCH (10:08)
[2019-03-24] MEDS: FERROUS SULFATE 325 MG TABLET PO SCH (10:08)
[2019-03-24] MEDS: DOCUSATE SODIUM 100 MG CAPSULE PO SCH (10:08)
[2019-03-24] MEDS: FAMOTIDINE 20 MG TABLET PO SCH (10:08)
[2019-03-24] MEDS: ACETAMINOPHEN WITH CODEINE #3 TABLET PO PRN (10:13)
--- NOTE | 2019-03-24 10:33 | PDOC DISCHARGE SUMMARY ---
Final Diagnosis Discharge Date: 03/24/19 - PP day #2, doing well, Desires Depo Provera for d/c home today, O+, Rubella immune. No PNC during her +THC. On labetalol post - Final Diagnosis (1) Marijuana abuse Is this a current diagnosis for this admission?: Yes (2) Limited care in third trimester Is this a current diagnosis for this admission?: Yes (3) Anemia Is this a current diagnosis for this admission?: Yes (4) Chronic hypertension Is this a current diagnosis for this admission?: Yes (5) Delivery normal Is this a current diagnosis for this admission?: Yes Discharge Data - Discharge Medication Prescriptions: Ferrous Sulfate [Feosol 325 mg Tablet] 325 mg PO DAILY #30 tablet Ibuprofen [Motrin 800 mg Tablet] 800 mg PO Q8 #60 tablet Labetalol HCl [Normodyne 200 mg Tablet] 200 mg PO Q12A #60 tablet Home Medications: Ferrous Sulfate [Feosol 325 mg Tablet] 325 mg PO DAILY #30 tablet 03/24/19 Ibuprofen [Motrin 800 mg Tablet] 800 mg PO Q8 #60 tablet 03/24/19 Labetalol HCl [Normodyne 200 mg Tablet] 200 mg PO Q12A #60 tablet 03/24/19 Vit/Dha [ Multi + Dha Capsule] 1 cap PO DAILY capsule 03/24/19 Reason(s) for Admission: Onset of Labor Procedures: None Intrapartum Procedure(s): Spontaneous Vaginal Delivery - Diagnosis Test Laboratory: Temp Pulse Resp BP Pulse Ox 97.6 F 67 15 130/82 H 98 03/24/19 08:11 03/24/19 08:11 03/24/19 08:11 03/24/19 08:11 03/24/19 08:11 03/21/19 03/21/19 03/23/19 17:40 17:42 07:04 RBC 3.67 L 3.27 L Hgb 11.2 L 10.1 L Hct 33.8 L 30.1 L Urine Opiates Screen NEGATIVE - Discharge information/Instructions Discharge Activity: Activity As Tolerated, No Lifting Over 10 Pounds, Pelvic Rest Discharge Diet: As Tolerated, Regular Disposition: HOME, SELF-CARE Follow up with: [facility] in: 1, Weeks - f/u at [facility] Dept or [facility] for BP check, then pt needs BTL consult
[2019-03-24] MEDS ORDERED: MEDROXYPROGESTERONE ACET INJ 150 MG/1 ML VIAL IM ONE ×2 (11:00→13:30)
[2019-03-24 12:28] VITALS: BP 121/80
== END 2019-03-24 15:45 | disposition home or self-care (01) | DRG 806 ==
LOC: LC 16:08 → LR 19:10 → 2S 03-22 11:20
PROVIDERS: ADMIT Obstetrics & Gynecology Gynecology; ATTEND Obstetrics & Gynecology Gynecology
PROC: 10E0XZZ Delivery of Products of Conception, External Approach (ICD-10-PCS; principal; 2019-03-22)
DX: O10.02 Pre-existing essential hypertension complicating childbirth (principal); O99.324 Drug use complicating childbirth; Z37.0 Single live birth; O99.334 Smoking (tobacco) complicating childbirth; O77.0 Labor and delivery complicated by meconium in amniotic fluid; F12.10 Cannabis abuse, uncomplicated; O99.02 Anemia complicating childbirth; D50.9 Iron deficiency anemia, unspecified; Z3A.40 40 weeks gestation of pregnancy
CPT/HCPCS: 36415; 76815; 80053; 80307; 80349; 81001; 82570; 83615; 84156; 84550; 85025; 85027; 86592; 86850; 86900; 86901; 87077; 87081; 87491; 87591; G0480; J1050; J2540; J2590; J3490